=== PATIENT | female | born 1950 ===

== ENCOUNTER 2020-08-31 10:30 | Inpatient (IN) | payer OTHER ==
[~2020-08-31] VITALS: Ht 162.6 cm; Wt 75.7 kg
[2020-08-31] MEDS ORDERED: [UNRECOGNIZED DRUG - OTHER] PO (14:10)
[2020-08-31] MEDS ORDERED: CRESTOR10 MG PO (14:11)
[2020-08-31] MEDS ORDERED: [UNRECOGNIZED DRUG - OTHER] PO (14:11)
[2020-08-31] MEDS ORDERED: [UNRECOGNIZED DRUG - OTHER] (14:12)
[2020-08-31] MEDS ORDERED: PEPCID AC20 MG PO (14:12)
[2020-08-31] MEDS ORDERED: [UNRECOGNIZED DRUG - OTHER] (14:13)
[2020-08-31] MEDS ORDERED: SUCRA PO (14:13)
[2020-09-07] MEDS ORDERED: ANTACID ANTI-G355 ML (14:17)
[2020-09-07] MEDS ORDERED: INTESTINEX680 M1 (14:17)
[2020-09-07] MEDS ORDERED: ALPRAZOLAM0.25 MG (14:17)
[2020-09-07] MEDS ORDERED: LOW DOSE ASPIRI81 M1 (14:18)
[2020-09-07] MEDS ORDERED: BISOPROLOL FUMAR5 MG (14:18)
[2020-09-07] MEDS ORDERED: DICYCLOMINE HCL20 MG (14:18)
[2020-09-07] MEDS ORDERED: SUCRALFATE1 GM (14:18)
[2020-09-07] MEDS ORDERED: REFRESH CONTACT12 ML (14:18)
[2020-09-07] MEDS ORDERED: TUMS300 MG (14:22)
[2020-09-10] MEDS ORDERED: ULTRAM50 MG PO (11:45)
[2020-09-10] MEDS ORDERED: INTESTINEX680 M1 PO (11:45)
[2020-09-10] MEDS ORDERED: MIRALAX17 GM PO (11:46)
== END 2020-09-10 14:29 | disposition home or self-care (01) | DRG 331 ==
LOC: O/R 09-07 07:18 → SURH 09-07 07:18 → O/R 09-07 08:15 → SURH 09-07 18:46
PROVIDERS: ADMIT Surgery; ATTEND Surgery
PROC: 07BC4ZX Excision of Pelvis Lymphatic, Percutaneous Endoscopic Approach, Diagnostic (ICD-10-PCS; 2020-09-07)
PROC: 0DBL4ZZ Excision of Transverse Colon, Percutaneous Endoscopic Approach (ICD-10-PCS; principal; 2020-09-07 08:15)
DX: C18.4 Malignant neoplasm of transverse colon (principal); D36.0 Benign neoplasm of lymph nodes; R59.0 Localized enlarged lymph nodes; I10 Essential (primary) hypertension; E78.5 Hyperlipidemia, unspecified; K21.9 Gastro-esophageal reflux disease without esophagitis

== ENCOUNTER 2020-09-05 08:51 | Day surgery (SDC) | payer OTHER ==
[~2020-09-05 08:51] MED LIST: CRESTOR10 MG PO; PEPCID AC20 MG PO; SUCRA PO; [UNRECOGNIZED DRUG - OTHER]; [UNRECOGNIZED DRUG - OTHER]; [UNRECOGNIZED DRUG - OTHER] PO; [UNRECOGNIZED DRUG - OTHER] PO
== END 2020-09-05 14:05 | disposition home or self-care (01) ==
LOC: AMB-ENDOS 08:51
PROVIDERS: ATTEND Surgery
DX: C18.4 Malignant neoplasm of transverse colon (principal); Z20.828 Contact with and (suspected) exposure to other viral communicable diseases

== ENCOUNTER 2020-09-05 09:47 | Outpatient (CLI) | payer OTHER | END 2020-09-05 15:00 | disposition home or self-care (01) | LOC: LAB 09:47 | PROVIDERS: ATTEND Surgery | DX: Z20.828 Contact with and (suspected) exposure to other viral communicable diseases (principal) ==